=== PATIENT | female | born 1955 | race Asian ===

== ENCOUNTER 2021-12-25 23:47 | Emergency (ER) | payer OTHER ==
[~2021-12-25] VITALS: Ht 162.6 cm; Wt 56.7 kg
[2021-12-26 00:01] VITALS: BP_SYST 121
--- NOTE | 2021-12-26 02:27 | NUR ---
Pt arrived to ED and was placed in room 3. Upon arrival pt stated she was seen earlier today by her primary and was given ATB. ATB were started earlier today and decided not to be seen after all. Throat Pain had subsided while waiting in waiting room and would rather go home and return if pain returned. Pt left ED before being seen by MD. R&B explained/
== END 2021-12-26 00:08 | disposition left against medical advice (07) ==
LOC: SED 23:47
DX: J02.9 Acute pharyngitis, unspecified (principal); Z53.21 Procedure and treatment not carried out due to patient leaving prior to being seen by health care provider